=== PATIENT | female | born 1980 | race African-American/Black ===

== ENCOUNTER 2022-01-27 11:43 | Emergency (ER) | payer BC, SELFPAY ==
--- NOTE | 2022-01-27 11:49 | ED.URI ---
HPI - URI/Sore Throat General Chief Complaint: Upper Respiratory Infection Stated Complaint: HURTS TO BREATHE Time Seen by Provider: 01/27/22 11:49 Source: patient and RN notes reviewed History of Present Illness HPI Narrative: Patient is a 41-year-old female who presents the urgent care with complaints of sinus drainage, sore throat and congestion. Patient states that her symptoms started on Wednesday and she had a negative COVID test at home yesterday. Patient states that she had a televisit yesterday with her doctor and they told her to continue taking the Sudafed and go to the urgent care if she feels like she is having any increase in chest tightness. Patient states that hurts to deep breathe which is consistent with her pleurisy diagnosis that she had last year. Patient denies of any cough, nausea, vomiting. Denies of any recent fevers. Denies of any ill contacts. Denies of chest pain. No other complaints. No acute distress noted. Patient aware of the plan of care. Some parts of this dictation were generated by voice recognition software and may contain typographical and/or grammatical inaccuracies. Related Data Home Medications Medication Instructions Recorded Confirmed dextroamphetamine-amphetamine PO 01/27/22 Allergies Allergy/AdvReac Type Severity Reaction Status Date / Time amoxicillin Allergy Unknown RASH Verified 11/12/18 12:57 Review of Systems Review of Systems: CONSTITUTIONAL: Denies fever, chills, or sweats. EYES: Denies visual changes, redness, or discharge. ENT: Reports of rhinorrhea, sinus congestion, sore throat and postnasal drainage CARDIOVASCULAR: Denies chest pain, palpitations, or edema. RESPIRATORY: Reports of pain with deep breathing and dyspnea GASTROINTESTINAL: Denies abdominal pain, nausea, vomiting, or diarrhea. GENITOURINARY: Denies dysuria or hematuria. SKIN: Denies rash or itching. MUSCULOSKELETAL: Denies back pain, joint pain, or myalgia. NEUROLOGIC: Denies headache, numbness, or weakness. All other systems reviewed are negative, except as documented in HPI. PMFSH Comments At the time of my signature, I reviewed and agree with the nursing past medical, surgical, social, and family history. There is no relevant family history pertinent to the patient complaint. Exam Narrative: GENERAL: This is a well-nourished, well-developed patient, in no apparent distress. HEAD: normocephalic, atraumatic. EYES: PERRL. Sclera clear/white. Vision is grossly intact. EARS: External ears normal, auditory canals clear and without drainage, TMs normal without perforation. Hearing grossly intact. NOSE: External nose normal with no obvious nasal discharge, nares without redness, no rhinorrhea. THROAT: Mucous membranes moist, posterior pharynx clear. Moderate postnasal drainage NECK: Neck supple CARDIOVASCULAR: Regular rate and rhythm without murmurs, gallops, or rubs. RESPIRATORY: Clear to auscultation. Breath sounds equal bilaterally. No wheezes, rales, or rhonchi. SKIN: warm, intact with no suspicious lesions or rash, good texture and turgor. NEURO: awake, alert, and oriented to person, place and time. There were no obvious focal neurologic abnormalities. EXTREMITIES: No clubbing, cyanosis, or edema. Course Course Level of Care: Express Care Visit Vital Signs Vital signs: Vital Signs Temperature 97.6 F 01/27/22 11:51 Pulse Rate 84 01/27/22 11:51 Respiratory Rate 16 01/27/22 11:51 Blood Pressure 142/88 H 01/27/22 11:51 Pulse Oximetry 100 01/27/22 11:51 Temperature 97.6 F 01/27/22 11:51 Pulse Rate 84 01/27/22 11:51 Respiratory Rate 16 01/27/22 11:51 Blood Pressure 142/88 H 01/27/22 11:51 Pulse Oximetry 100 01/27/22 11:51 Reviewed-patient is informed that they may have pre-hypertension or hypertension based on a blood pressure reading in the department. I recommend the patient call the primary care provider listed on their discharge instructions or a physician of
[2022-01-27 11:51] VITALS: BP 142/88; PULSE 84; RESP 16; TEMP 36.4; O2SAT 100
== END 2022-01-27 12:05 | disposition home or self-care (01) ==
PROVIDERS: Emergency Provider Nurse Practitioner Family
DX: R09.1 Pleurisy (principal)
CPT/HCPCS: 99203; G0463

== ENCOUNTER 2022-03-01 12:32 | Emergency (ER) | payer BC, SELFPAY ==
[2022-03-01 12:41] VITALS: BP 130/79; PULSE 88; RESP 16; TEMP 37; O2SAT 100
--- NOTE | 2022-03-01 13:02 | ED.SKABFB ---
HPI - Skin/Abscess/Foreign Bdy General Chief complaint: Skin/Abscess/Foreign Body Stated complaint: RASH/SWELLING TO BOTH HANDS & UPPER BODY Time Seen by Provider: 03/01/22 12:45 Source: patient Mode of arrival: ambulatory Limitations: no limitations History of Present Illness HPI narrative: Randee is a 41-year-old female patient presenting to the clinic today with complaints of a rash on her feet, abdomen, and bilateral hands. She reports that this has been going on for little over a week. Was seen by her PCP and he ordered her some triamcinolone cream for her rash and she put it on her hands and she stated that as soon as she put her hands her hands began to burn and swell up and became painful. He told her to discontinue the triamcinolone cream and wash her hands thoroughly and apply aloe vera. This has helped the pain and inflammation in her hands however she still has a rash. States the rash just developed over the last day or 2 on her abdomen. She denies any new changes in soaps, shampoos, detergents, foods, or any other environmental changes. She says she does have a history of eczema. She has also noticed this rash on her feet and its itchy. Related Data Home Medications Medication Instructions Recorded Confirmed dextroamphetamine-amphetamine ER PO 01/27/22 10 mg 24hr capsule,extend release Allergies Allergy/AdvReac Type Severity Reaction Status Date / Time amoxicillin Allergy Unknown RASH Verified 03/01/22 12:42 Review of Systems Review of Systems: Pertinent positives per HPI. Patient denies any fever, chills, headache, visual changes, dizziness, cough, runny nose, sore throat, shortness of breath, chest pain, palpitations, nausea, vomiting, diarrhea, constipation, abdominal pain, or any urinary issues. PMFSH Comments At the time of my signature, I reviewed and agree with the nursing past medical, surgical, social, and family history. There is no relevant family history pertinent to the patient complaint. Exam Narrative: General: Well-developed, well nourished, in no apparent distress Head: Normocephalic, atraumatic. Cardio: Regular rate and rhythm, s1 and s2 normal, no murmur appreciated. Resp: Clear to auscultation bilaterally, no rhonchi, rales, wheezing or rubs. Integumentary: [place], warm, and dry, bilateral hand swelling, tenderness, and appears to have a chemical burn without blistering, has a red raised itchy sand paperlike rash to the abdomen and red raised itchy rash to bilateral feet. Course Course Emergency Course: Portions of this record may have been created with voice recognition software. Level of Care: Express Care Visit Vital Signs Vital signs: Vital Signs Temperature 37.0 C 03/01/22 12:41 Pulse Rate 88 03/01/22 12:41 Respiratory Rate 16 03/01/22 12:41 Blood Pressure 130/79 03/01/22 12:41 Pulse Oximetry 100 03/01/22 12:41 Oxygen Delivery Room Air 03/01/22 12:41 Temperature 37.0 C 03/01/22 12:41 Pulse Rate 88 03/01/22 12:41 Respiratory Rate 16 03/01/22 12:41 Blood Pressure 130/79 03/01/22 12:41 Pulse Oximetry 100 03/01/22 12:41 Oxygen Delivery Room Air 03/01/22 12:41 Vital signs reviewed MDM - Skin/Abscess/Foreign Bdy MDM Narrative Medical decision making narrative: At the time of visit patient is resting comfortably on the exam table. It appears that she has a chemical burn to bilateral hands from the triamcinolone cream that she had applied. She also has quite a bit of swelling in the hands and inflammation still in her hands. She has an itchy red raised rash to her upper abdomen and bilateral feet. I suspect the patient has atopic dermatitis with chemical manning to her hands from the use of the triamcinolone cream. I will place her on a prescription for some prednisone to help with the inflammation and itching. Supportive measures were discussed to treat the chemical manning and the atopic dermatitis. Discharge instructions wer
== END 2022-03-01 13:12 | disposition home or self-care (01) ==
PROVIDERS: Emergency Provider Nurse Practitioner Family
DX: T49.0X1A Poisoning by local antifungal, anti-infective and anti-inflammatory drugs, accidental (unintentional), initial encounter (principal); T23.402A Corrosion of unspecified degree of left hand, unspecified site, initial encounter; T23.401A Corrosion of unspecified degree of right hand, unspecified site, initial encounter; L20.9 Atopic dermatitis, unspecified
CPT/HCPCS: 99213; G0463

== ENCOUNTER 2023-01-26 10:25 | Emergency (ER) | payer BC, SELFPAY ==
--- NOTE | 2023-01-26 10:27 | ED.URI ---
HPI - URI/Sore Throat General Chief Complaint: Upper Respiratory Infection Stated Complaint: COUGH/CONGESTION/RUNNY NOSE/SNEEZIN Time Seen by Provider: 01/26/23 10:33 Source: patient and RN notes reviewed Mode of arrival: ambulatory Limitations: no limitations History of Present Illness HPI Narrative: Report he 2-year-old female presents with concern for 5 day history of cough, congestion, runny nose, sneezing. 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 Reports her daughter had strep throat last week. She reports she has been using Tessalon [place] and Mucinex elicited complaint: cough and nasal congestion Related Data Home Medications Medication Instructions Recorded Confirmed dextroamphetamine-amphetamine ER 1 cap PO DAILY 01/27/22 01/26/23 10 mg 24hr capsule,extend release benzonatate 200 mg capsule 200 mg PO DAILY 01/26/23 01/26/23 Allergies Allergy/AdvReac Type Severity Reaction Status Date / Time amoxicillin Allergy Unknown RASH Verified 03/01/22 12:42 triamcinolone Allergy Other Verified 01/26/23 10:33 Review of Systems Review of Systems: CONSTITUTIONAL: Reports malaise. Denies chills, sweats, or fever. EYES: Denies visual changes, redness, or discharge. ENT: Reports rhinorrhea, congestion. Denies sinus pain, otalgia and sore throat. CARDIOVASCULAR: Denies chest pain, palpitations, or edema. RESPIRATORY: Reports cough. Denies dyspnea. GASTROINTESTINAL: Denies abdominal pain, nausea, vomiting, diarrhea SKIN: Denies rash or itching. MUSCULOSKELETAL: Denies myalgia. NEUROLOGIC: Denies headache. All systems reviewed & are unremarkable except as noted in HPI and below [facility] Comments At time of signature, agree with nursing past medical, surgical, social and family history. There is no relevant family history pertinent to the presenting complaint Exam Narrative: GENERAL: Nontoxic-appearing and in no acute distress. HEAD: Normocephalic EYES: PERRLA, conjunctivae clear ENT: Nares clear, turbinates edematous and erythematous, clear discharge. Mucous membranes moist. TM pearly hernandez with sharp light reflex bilaterally; no tragal tenderness. Oropharynx erythematous without lesions. Tonsils not enlarged and without exudate, no drooling, no hoarseness, no trismus, uvula midline. NECK: Supple. No lymphadenopathy CHEST: Clear to auscultation, breath sounds equal. No wheezing, rhonchi, rales, or stridor. No respiratory distress, speaks in full sentences. Cough noted HEART: Regular rate and rhythm. No murmur heard. SKIN: Warm, dry, no rash. NEURO: Alert and oriented x3. PSYCH: Normal mood and affect Course Course Emergency Course: Patient reports she is taking at methylprednisolone without reaction. Her reaction was to a topical steroid. She would like to try oral steroids for her cough. Patient is aware of diagnosis, understands and agrees to treatment plan. Anticipatory guidance given. Patient agrees to follow-up as directed and is aware of reasons to seek care at the emergency department. Portions of this record may have been created with voice recognition software Level of Care: Express Care Visit Vital Signs Vital signs: Reviewed. MDM - URI/Sore Throat MDM Narrative Medical decision making narrative: Differential diagnosis considered: Krueger virus, strep pharyngitis, allergic rhinitis, upper respiratory tract infection, sinusitis, rhinosinusitis, nasopharyngitis. viral pharyngitis, otitis media, otitis externa, pneumonia, bronchitis, viral cough syndrome, viral syndrome, and influenza. Exam findings show no acute concerns or changes; patient is non-toxic appearing and is in no distress. Patient is appropriate for outpatient treatment and follow-up. Lab Data Attestation: I reviewed the patient's lab results. Critical Care Time Critical Care Time Critical Care Time: No Discharge Plan Discharge Clinical Impression: Bronchitis Patient Disposition: Home, Self-Care Condition: Stable Instructions:
[2023-01-26 10:33] VITALS: BP 119/89; PULSE 88; RESP 16; TEMP 36.6; O2SAT 100
[2023-01-26 10:37] VITALS: BP 119/89; PULSE 88; RESP 16; TEMP 36.6; O2SAT 100
== END 2023-01-26 11:05 | disposition home or self-care (01) ==
PROVIDERS: Emergency Provider Nurse Practitioner
DX: J40 Bronchitis, not specified as acute or chronic (principal); Z20.822 Contact with and (suspected) exposure to COVID-19
CPT/HCPCS: 87081; 87426; 87804; 87880; 99213; C9803; G0463

== ENCOUNTER 2023-05-07 14:01 | Emergency (ER) | payer BC, SELFPAY ==
--- NOTE | 2023-05-07 14:17 | ED.URI ---
HPI - URI/Sore Throat General Chief Complaint: Upper Respiratory Infection Stated Complaint: Sinus Infection symptoms Time Seen by Provider: 05/07/23 14:41 Source: patient and RN notes reviewed Mode of arrival: ambulatory Limitations: no limitations History of Present Illness HPI Narrative: 42-year-old female presents with concern for fever, cough, sore throat, left ear pain that started 2 days ago. She took a negative COVID test on Wednesday. She reports taking Sudafed. She denies nausea, vomiting, diarrhea MD elicited complaint: cough, sore throat and nasal congestion Related Data Home Medications Medication Instructions Recorded Confirmed dextroamphetamine-amphetamine ER 1 cap PO DAILY 01/27/22 05/07/23 10 mg 24hr capsule,extend release Allergies Allergy/AdvReac Type Severity Reaction Status Date / Time amoxicillin Allergy Unknown RASH Verified 03/01/22 12:42 triamcinolone Allergy Other Verified 01/26/23 10:33 Review of Systems Review of Systems: CONSTITUTIONAL: Reports malaise, fever. EYES: Denies visual changes, redness, or discharge. ENT: Reports rhinorrhea, congestion, otalgia and sore throat. CARDIOVASCULAR: Denies chest pain, palpitations, or edema. RESPIRATORY: Reports cough. Denies dyspnea. GASTROINTESTINAL: Denies abdominal pain, nausea, vomiting, diarrhea SKIN: Denies rash or itching. MUSCULOSKELETAL: Denies myalgia. NEUROLOGIC: Denies headache. All systems reviewed & are unremarkable except as noted in HPI and below PMFSH Comments At time of signature, agree with nursing past medical, surgical, social and family history. There is no relevant family history pertinent to the presenting complaint Exam Narrative: GENERAL: Well-appearing, well-nourished, and in no acute distress. HEAD: Normocephalic EYES: PERRLA, conjunctivae clear ENT: Nares clear, turbinates edematous and erythematous, clear discharge. Mucous membranes moist. Right TM pearly hernandez with dull light reflex, left TM erythematous; no tragal tenderness. Oropharynx not erythematous without lesions. Tonsils not enlarged and without exudate, no drooling, no hoarseness, no trismus, uvula midline. NECK: Supple. No lymphadenopathy CHEST: Clear to auscultation, breath sounds equal. No wheezing, rhonchi, rales, or stridor. No respiratory distress, speaks in full sentences. HEART: Regular rate and rhythm. No murmur heard. SKIN: Warm, dry, no rash. NEURO: Alert and oriented x3. PSYCH: Normal mood and affect Course Course Emergency Course: Patient is aware of diagnosis, understands and agrees to treatment plan. Anticipatory guidance given. Patient agrees to follow-up as directed and is aware of reasons to seek care at the emergency department. Portions of this record may have been created with voice recognition software Level of Care: Express Care Visit Vital Signs Vital signs: Reviewed. MDM - URI/Sore Throat MDM Narrative Medical decision making narrative: Differential diagnosis considered: Krueger virus, strep pharyngitis, allergic rhinitis, upper respiratory tract infection, sinusitis, rhinosinusitis, nasopharyngitis. viral pharyngitis, otitis media, otitis externa, pneumonia, bronchitis, viral cough syndrome, viral syndrome, and influenza. Exam findings show no acute concerns or changes; patient is non-toxic appearing and is in no distress. Patient is appropriate for outpatient treatment and follow-up. Lab Data Attestation: I reviewed the patient's lab results. Critical Care Time Critical Care Time Critical Care Time: No Discharge Plan Discharge Clinical Impression: Otitis media, Upper respiratory infection Patient Disposition: Home, Self-Care Condition: Stable Instructions: Antibiotic Form, Ear Infection (ED) Additional Instructions: Take antibiotics as directed for ear infection, antibiotic will not help viral symptoms. Recommend antihistamine such as Benadryl at night time and Zyrtec-D during the day unt
[2023-05-07 14:28] VITALS: BP 126/78; PULSE 92; RESP 16; TEMP 36.3; O2SAT 100
== END 2023-05-07 14:56 | disposition home or self-care (01) ==
PROVIDERS: Emergency Provider Nurse Practitioner
DX: H66.92 Otitis media, unspecified, left ear (principal); J06.9 Acute upper respiratory infection, unspecified; Z20.822 Contact with and (suspected) exposure to COVID-19; F90.9 Attention-deficit hyperactivity disorder, unspecified type
CPT/HCPCS: 87081; 87426; 87880; 99213; C9803; G0463